=== PATIENT | female | born 1950 | race Caucasian/White ===

== ENCOUNTER 2018-02-17 07:41 | Day surgery (SDC) | payer MEDICARE, BC ==
[2018-02-09 15:59] LABS: BASOPHILS # (AUTO) 0.1 X10'3 (0-0.2); BASOPHILS % (AUTO) 0.6 % (0-1); EOSINOPHILS # (AUTO) 0.2 X10'3 (0-0.9); EOSINOPHILS % (AUTO) 2.4 % (0-6); LYMPHOCYTES # (AUTO) 1.9 X10'3 (1.1-4.8); LYMPHOCYTES % (AUTO) 19.2 % (21-51); MEAN CORPUSCULAR HEMOGLOBIN 29.8 PG (27.0-31.0); MEAN CORPUSCULAR HGB CONC 34.1 % (33.0-36.5); MEAN CORPUSCULAR VOLUME 87.6 FL (78-98); MEAN PLATELET VOLUME 8.8 FL (7.4-10.4); MONOCYTES % (AUTO) 10.6 % (2-12); NEUTROPHILS # (AUTO) 6.5 X10'3 (1.8-7.7); NEUTROPHILS % (AUTO) 67.2 % (42-75); PRE OP HEMATOCRIT 40.5 % (35.0-45.0); PRE OP HEMOGLOBIN 13.8 g/dL (12.0-16.0); PRE OP PLATELET COUNT 243 X10'3 (140-440); RED BLOOD COUNT 4.63 X10'6 (4.20-5.60); RED CELL DISTRIBUTION WIDTH 14.3 % (11.5-14.5)
[2018-02-09 16:09] LABS: ALBUMIN 3.9 G/DL (3.4-5.0); ALBUMIN/GLOBULIN RATIO 0.9 (1.1-1.5); ALKALINE PHOSPHATASE 90 IU/L (46-116); BLOOD UREA NITROGEN 15 MG/DL (7-18); BUN/CREATININE RATIO 20.5 (6.6-38.0); CALCIUM 8.9 MG/DL (8.5-10.1); CHLORIDE 102 MMOL/L (99-107); CREATININE 0.73 MG/DL (0.40-0.90); PRE OP ALT 25 U/L (30-65); PRE OP ANION GAP 9 (8-16); PRE OP AST 19 U/L (10-37); PRE OP BILIRUB, TOTAL 0.3 MG/DL (0.0-1.0); PRE OP GLUCOSE 89 MG/DL (70-104); PRE OP SODIUM 139 MMOL/L (135-145); TOTAL CARBON DIOXIDE 27.7 MMOL/L (24-32); TOTAL PROTEIN 8.1 G/DL (6.4-8.2); eGFR 79 ML/MIN
[2018-02-09 16:10] LABS: PRE OP INR 1.2 INR; PRE OP PROTIME 12.3 SECONDS (9.0-12.0)
[2018-02-09 16:13] LABS: HEMOGLOBIN A1C 6.4 % (4.5-6.2)
[2018-02-17] VITALS (17 sets, daily range): BP systolic 106–154; BP diastolic 49–81
[~2018-02-17] VITALS: Ht 172.7 cm; Wt 103.9 kg
[~2018-02-17 07:41] MED LIST: ALBU8.5H8 INH; AMLO1TAB15 PO; AZAT50TA7 PO; BIO TEARS PO; CALC-1051 PO; CEVI30CA PO; CYCL1DRO EACHEYE; DOCUMENT DATE & TIME OF BETA-BLOCKER PO ONE; FISH12002 PO; FLO0.1T PO; FOLI0.4T2 PO; HUM7525 SQ; HYDR-3564 PO; HYDR200T80 PO; LANTUS SQ; MAGN400C PO; METO50TA7 PO; MILN50TA PO; MULT-1133 PO; OASIS TEARS EACHEYE; OMEP20CA10 PO; POTA20TA19 PO; RIVA20TA PO; ROSU20TA PO; SOTA80TA PO; VOLTAREN GEL TOP; albuterol 2.5 MG/3 ML nebule NEB ONE; clindamycin-Cleocin 900mg/D5W 50 ML IV ONE; famotidine 20mg tablet PO ONE
[2018-02-17] MEDS: ringers solution, lacted 1,000 ML IV SCH ×4 (08:24→14:56)
[2018-02-17] MEDS ORDERED: BUPIVAcaine/PF 7.5mg/ml (0.75%) 10ml vial ONE (10:18)
[2018-02-17] MEDS ORDERED: tetracaine 1% (10mg/ml) pres. free inj. ONE (10:18)
[2018-02-17] MEDS ORDERED: morphine /PF 1mg/ml 10ml inj. ONE (10:22)
[2018-02-17] MEDS ORDERED: MIDAZolam 1mg/ml 10ml vial ONE (10:22)
[2018-02-17] MEDS ORDERED: ringers solution, lacted 1,000 ML IV SCH (10:44)
[2018-02-17] MEDS ORDERED: hydrALAZINE 20mg/ml inj. IV PRN (10:45)
[2018-02-17] MEDS ORDERED: fentaNYL/PF 50MCG/1 ML 2ML syringe IV PRN ×2 (10:45)
[2018-02-17] MEDS ORDERED: ondansetron/PF 4mg/2ml inj IV PRN ×2 (10:45→10:50)
[2018-02-17] MEDS ORDERED: labetalol 20mg/4ml (5mg/ml) syringe IV PRN (10:45)
[2018-02-17] MEDS ORDERED: morphine 4 MG/ML inj SYRINge IV PRN ×2 (10:45)
[2018-02-17] MEDS ORDERED: diphenhydrAMINE 50 mg/ml inj IV PRN (10:50)
[2018-02-17] MEDS ORDERED: ROPIVAcaine 0.5% (5mg/ml) 30ml vial ONE ×2 (11:05→13:03)
[2018-02-17] MEDS ORDERED: dexamethasone sod phosphate 4mg/ml inj. ONE (13:15)
[2018-02-17] MEDS ORDERED: ondansetron/PF 4mg/2ml inj ONE (13:15)
[2018-02-17] MEDS ORDERED: albuterol 2.5 MG/3 ML nebule NEB PRN (13:30)
[2018-02-17] MEDS ORDERED: oxyCODONE IR 5mg (immed. release) tablet PO PRN (13:35)
[2018-02-17] MEDS ORDERED: magnesium hydroxide 30ml (MOM) UD suspension PO PRN (13:35)
[2018-02-17] MEDS ORDERED: diphenhydrAMINE 25mg capsule PO PRN ×2 (13:35)
[2018-02-17] MEDS ORDERED: HYDROmorphone inj. 0.5 MG/0.5 ML DISP.SYRIN IV PRN (13:35)
[2018-02-17] MEDS ORDERED: bisacodyl 10mg suppository rectal RC PRN (13:35)
[2018-02-17] MEDS: potassium Cl 20mEq in NS 1,000 ML IV SCH (14:55)
[2018-02-17] MEDS ORDERED: MESSAGE TO PHARMACY PO ONE (16:30)
[2018-02-17] MEDS ORDERED: dextrose 50%-water 50ml dispensing syringe IV PRN ×2 (16:30)
[2018-02-17] MEDS ORDERED: dextrose ORAL solution 15 GM/59 ML bottle PO PRN ×2 (16:30)
[2018-02-17] MEDS ORDERED: glucagon, human recombinant 1mg kit SUBCUT PRN (16:30)
[2018-02-17] MEDS ORDERED: insulin Lispro (HumaLOG) vial - multi-dose SQ SCH (16:30)
[2018-02-17] MEDS ORDERED: polyvinyl alcohol ophthalmic drops 15ml bottle EACHEYE SCH (17:00)
[2018-02-17] MEDS: proCHLORperazine 10 MG/2 ml inj IV PRN (17:15)
[2018-02-17] MEDS ORDERED: vancomycin/NS 1 GM ADD-VANTAGE 250 ML IV SCH (20:00)
[2018-02-17] MEDS ORDERED: cycloSPORINE 0.05% ophthalmic emulsion EACHEYE SCH (20:00)
[2018-02-17] MEDS ORDERED: BIO TEARS PO SCH (20:00)
[2018-02-17] MEDS: CEVIMELINE HCL 30 MG PO SCH (20:17)
[2018-02-17] MEDS: MILNACIPRAN HCL 50 MG TABLET PO SCH (20:17)
[2018-02-17] MEDS: sennosides 8.6mg tablet PO SCH (20:19)
[2018-02-17] MEDS: amLODIPine 5mg tablet PO SCH (20:19)
[2018-02-17] MEDS: sotalol 80mg tablet PO SCH (20:20)
[2018-02-17] MEDS ORDERED: VALSARTAN PO SCH (21:00)
[2018-02-17] MEDS ORDERED: AMLODIPINE PO SCH (21:00)
[2018-02-17] MEDS: insulin glargine (Lantus) pen - multi-dose SQ SCH (21:00)
[2018-02-18 02:10] VITALS: BP 146/82
[2018-02-18] MEDS: potassium Cl 20mEq in NS 1,000 ML IV SCH ×3 (02:22→19:34)
[2018-02-18 06:00] VITALS: BP 142/73
[2018-02-18] MEDS: ondansetron/PF 4mg/2ml inj IV PRN (06:44)
[2018-02-18 07:00] LABS: ANION GAP 11 (8-16); CHLORIDE 102 MMOL/L (99-107); POTASSIUM 4.2 MMOL/L (3.5-5.1); SODIUM 138 MMOL/L (135-145); TOTAL CARBON DIOXIDE 24.8 MMOL/L (24-32)
[2018-02-18] MEDS: MILNACIPRAN HCL 50 MG TABLET PO SCH ×3 (08:00→20:18)
[2018-02-18] MEDS: CEVIMELINE HCL 30 MG PO SCH ×3 (08:00→20:18)
[2018-02-18 08:24] LABS: BASOPHILS # (AUTO) 0.1 X10'3 (0-0.2); BASOPHILS % (AUTO) 0.7 % (0-1); EOSINOPHILS % (AUTO) 0 % (0-6); HEMATOCRIT 37.5 % (35.0-45.0); HEMOGLOBIN 12.6 g/dl (12.0-16.0); LYMPHOCYTES # (AUTO) 0.4 X10'3 (1.1-4.8); LYMPHOCYTES % (AUTO) 2.9 % (21-51); MEAN CORPUSCULAR HEMOGLOBIN 29.9 PG (27.0-31.0); MEAN CORPUSCULAR HGB CONC 33.7 % (33.0-36.5); MEAN CORPUSCULAR VOLUME 88.7 FL (78-98); MEAN PLATELET VOLUME 8.9 FL (7.4-10.4); MONOCYTES % (AUTO) 7.1 % (2-12); NEUTROPHILS # (AUTO) 12.3 X10'3 (1.8-7.7); NEUTROPHILS % (AUTO) 89.3 % (42-75); PLATELET COUNT 231 X10'3 (140-440); RED BLOOD COUNT 4.23 X10'6 (4.20-5.60); WHITE BLOOD COUNT 13.8 X10'3 (4.5-11.0)
[2018-02-18] MEDS: sotalol 80mg tablet PO SCH ×2 (08:36→20:10)
[2018-02-18] MEDS: fludrocortisone acetate 0.1mg tablet PO SCH (08:36)
[2018-02-18] MEDS: potassium Cl 20 mEq SR tablet PO SCH (08:37)
[2018-02-18] MEDS: pantoprazole 40mg Tablet.DR PO SCH (08:38)
[2018-02-18] MEDS: metoprolol succinate 25mg (24-HOUR) SR. Tablet PO SCH (08:38)
[2018-02-18 10:00] VITALS: BP 145/94
[2018-02-18] MEDS ORDERED: metoclopramide 5 mg/ml inj IV PRN (11:20)
[2018-02-18 14:00] VITALS: BP 126/51
[2018-02-18] MEDS: acetaminophen 325mg tablet PO PRN (14:46)
[2018-02-18] MEDS: oxyCODONE IR 5mg (immed. release) tablet PO PRN (17:04)
[2018-02-18 18:00] VITALS: BP 119/55
[2018-02-18] MEDS: proCHLORperazine 10 MG/2 ml inj IV PRN (19:04)
[2018-02-18] MEDS: sennosides 8.6mg tablet PO SCH (20:09)
[2018-02-18] MEDS: amLODIPine 5mg tablet PO SCH (20:09)
[2018-02-18] MEDS: insulin glargine (Lantus) pen - multi-dose SQ SCH (21:00)
[2018-02-18 22:00] VITALS: BP 122/51
[2018-02-19] MEDS: oxyCODONE IR 5mg (immed. release) tablet PO PRN ×5 (00:35→16:30)
[2018-02-19] MEDS: acetaminophen 325mg tablet PO PRN ×4 (03:02→16:30)
[2018-02-19 06:00] VITALS: BP_SYST 135; BP_SYST 139; BP_DIAS 60; BP_DIAS 63
[2018-02-19 06:36] LABS: BASOPHILS % (AUTO) 0 % (0-1); EOSINOPHILS # (AUTO) 0.1 X10'3 (0-0.9); EOSINOPHILS % (AUTO) 0.8 % (0-6); HEMATOCRIT 35.4 % (35.0-45.0); HEMOGLOBIN 12.1 g/dl (12.0-16.0); LYMPHOCYTES # (AUTO) 1.3 X10'3 (1.1-4.8); LYMPHOCYTES % (AUTO) 9.6 % (21-51); MEAN CORPUSCULAR HEMOGLOBIN 29.7 PG (27.0-31.0); MEAN CORPUSCULAR HGB CONC 34.2 % (33.0-36.5); MEAN CORPUSCULAR VOLUME 86.8 FL (78-98); MEAN PLATELET VOLUME 9.5 FL (7.4-10.4); MONOCYTES # (AUTO) 1.4 X10'3 (0-0.9); NEUTROPHILS # (AUTO) 10.3 X10'3 (1.8-7.7); NEUTROPHILS % (AUTO) 78.6 % (42-75); PLATELET COUNT 199 X10'3 (140-440); RED BLOOD COUNT 4.07 X10'6 (4.20-5.60); RED CELL DISTRIBUTION WIDTH 14.1 % (11.5-14.5); WHITE BLOOD COUNT 13.1 X10'3 (4.5-11.0)
[2018-02-19] MEDS: pantoprazole 40mg Tablet.DR PO SCH (07:53)
[2018-02-19] MEDS: sotalol 80mg tablet PO SCH ×2 (07:54→20:23)
[2018-02-19] MEDS: fludrocortisone acetate 0.1mg tablet PO SCH (07:54)
[2018-02-19] MEDS: potassium Cl 20 mEq SR tablet PO SCH (07:54)
[2018-02-19] MEDS: metoprolol succinate 25mg (24-HOUR) SR. Tablet PO SCH (07:55)
[2018-02-19] MEDS: CEVIMELINE HCL 30 MG PO SCH ×3 (08:00→20:25)
[2018-02-19] MEDS: ondansetron/PF 4mg/2ml inj IV PRN (08:00)
[2018-02-19] MEDS: MILNACIPRAN HCL 50 MG TABLET PO SCH ×3 (08:00→20:25)
[2018-02-19 10:00] VITALS: BP 135/63
[2018-02-19 18:00] VITALS: BP 156/58
[2018-02-19] MEDS ORDERED: ondansetron 4mg rapidly disintigrating tab PO PRN (18:55)
[2018-02-19] MEDS ORDERED: HYDROcodone/acetaminophen 10/325mg tab PO PRN (18:55)
[2018-02-19] MEDS ORDERED: HYDROmorphone 1 mg/ml syringe IV PRN (18:59)
[2018-02-19] MEDS: amLODIPine 5mg tablet PO SCH (20:23)
[2018-02-19] MEDS: sennosides 8.6mg tablet PO SCH (20:24)
[2018-02-19] MEDS: insulin glargine (Lantus) pen - multi-dose SQ SCH (20:58)
[2018-02-19 22:00] VITALS: BP 151/77
[2018-02-19] MEDS: HYDROcodone/acetaminophen 10/325mg tab PO PRN (22:28)
[2018-02-20] MEDS: HYDROcodone/acetaminophen 10/325mg tab PO PRN ×2 (02:34→09:34)
[2018-02-20 06:39] LABS: BASOPHILS # (AUTO) 0.1 X10'3 (0-0.2); BASOPHILS % (AUTO) 0.5 % (0-1); EOSINOPHILS # (AUTO) 0.1 X10'3 (0-0.9); EOSINOPHILS % (AUTO) 1.3 % (0-6); HEMATOCRIT 37.9 % (35.0-45.0); HEMOGLOBIN 12.7 g/dl (12.0-16.0); LYMPHOCYTES # (AUTO) 1.8 X10'3 (1.1-4.8); LYMPHOCYTES % (AUTO) 16.5 % (21-51); MEAN CORPUSCULAR HEMOGLOBIN 29.5 PG (27.0-31.0); MEAN CORPUSCULAR HGB CONC 33.4 % (33.0-36.5); MEAN CORPUSCULAR VOLUME 88.2 FL (78-98); MEAN PLATELET VOLUME 9.2 FL (7.4-10.4); MONOCYTES # (AUTO) 1.3 X10'3 (0-0.9); MONOCYTES % (AUTO) 12.3 % (2-12); NEUTROPHILS # (AUTO) 7.4 X10'3 (1.8-7.7); NEUTROPHILS % (AUTO) 69.4 % (42-75); PLATELET COUNT 217 X10'3 (140-440); RED CELL DISTRIBUTION WIDTH 14.3 % (11.5-14.5); WHITE BLOOD COUNT 10.7 X10'3 (4.5-11.0)
[2018-02-20] MEDS: MILNACIPRAN HCL 50 MG TABLET PO SCH (08:00)
[2018-02-20] MEDS: CEVIMELINE HCL 30 MG PO SCH (08:00)
[2018-02-20] MEDS: sotalol 80mg tablet PO SCH (09:33)
[2018-02-20] MEDS: metoprolol succinate 25mg (24-HOUR) SR. Tablet PO SCH (09:34)
[2018-02-20] MEDS: pantoprazole 40mg Tablet.DR PO SCH (09:34)
[2018-02-20] MEDS: fludrocortisone acetate 0.1mg tablet PO SCH (09:35)
[2018-02-20] MEDS: potassium Cl 20 mEq SR tablet PO SCH (09:35)
== END 2018-02-20 12:33 | disposition home or self-care (01) ==
LOC: PAS 07:41 → ORTHO 4S 13:34 → PAS 02-20 12:33
PROVIDERS: ATTEND Orthopaedic Surgery
DX: M21.41 Flat foot [pes planus] (acquired), right foot (principal); I48.2 Chronic atrial fibrillation; J45.998 Other asthma; I10 Essential (primary) hypertension; E11.9 Type 2 diabetes mellitus without complications; K21.9 Gastro-esophageal reflux disease without esophagitis; M06.9 Rheumatoid arthritis, unspecified; G47.33 Obstructive sleep apnea (adult) (pediatric); I49.8 Other specified cardiac arrhythmias; J44.9 Chronic obstructive pulmonary disease, unspecified; G89.29 Other chronic pain; E66.9 Obesity, unspecified; Z88.0 Allergy status to penicillin; Z88.3 Allergy status to other anti-infective agents; Z88.1 Allergy status to other antibiotic agents; Z91.013 Allergy to seafood; Z91.018 Allergy to other foods; Z91.048 Other nonmedicinal substance allergy status; Z68.34 Body mass index [BMI] 34.0-34.9, adult; Z72.89 Other problems related to lifestyle; Z85.3 Personal history of malignant neoplasm of breast; Z79.4 Long term (current) use of insulin; Z98.41 Cataract extraction status, right eye; Z98.42 Cataract extraction status, left eye; Z90.11 Acquired absence of right breast and nipple; Z79.891 Long term (current) use of opiate analgesic; Z98.890 Other specified postprocedural states; Z88.8 Allergy status to other drugs, medicaments and biological substances; Z79.899 Other long term (current) drug therapy
CPT/HCPCS: 28262; 36415; 71046; 80051; 80053; 82948; 83036; 85025; 85610; 85730; 87070; A6223; A6449; A6454; C1713; C1758; J0780; J1100; J1815; J2250; J2274; J2405; J2765; J2795; J3370; J3490; J7120; Q0163; A7000

== ENCOUNTER 2019-10-10 17:47 | Outpatient (CLI) | payer MEDICARE, BC ==
[~2019-10-10 17:47] MED LIST changes: -CALC-1051 PO; -DOCUMENT DATE & TIME OF BETA-BLOCKER PO ONE; -FISH12002 PO; -FOLI0.4T2 PO; -HYDR-3564 PO; -MAGN400C PO; -MULT-1133 PO; -OMEP20CA10 PO; +OMEP20CA15 PO; -ROSU20TA PO; -VOLTAREN GEL TOP; -albuterol 2.5 MG/3 ML nebule NEB ONE; -clindamycin-Cleocin 900mg/D5W 50 ML IV ONE; -famotidine 20mg tablet PO ONE
== END 2019-10-10 23:59 | disposition home or self-care (01) ==
LOC: LAB SPEC 17:47
PROVIDERS: ATTEND Surgery
DX: L02.414 Cutaneous abscess of left upper limb (principal)
CPT/HCPCS: 87070; 87077; 87186